=== PATIENT | male | born 1965 | race Caucasian/White ===

== ENCOUNTER → 2019-08-06 | Outpatient (CLI) | payer OTHER ==
[~2019-08-06] MED LIST: AZELAST NASAL137 MC1 SPRAY; B-122500 MCG PO; BUSPAR 5 MG TABL5 M1 PO; CLARITIN10 M2; FENOFIBRATE160 MG PO; FLONASE 0.05%50 MCG SPRAY; GINKGO BILOBA40 M1 PO; HYDROCODON-ACE1 EAC7 PO; MULTIVITAMINS PO; NAPROSYN500 MG PO; OMEPRAZOLE20 M2 PO; PERCOCET 5-3251 EACH PO; QVAR HFA 440 MCG/UN1 INH; VITAMIN D-32000 UNIT PO; XANAX 0.5 MG0.5 M1 PO
== END ==
LOC: RAD 10:33
DX: M43.17 Spondylolisthesis, lumbosacral region (principal); M54.16 Radiculopathy, lumbar region

== ENCOUNTER → 2019-08-20 | Outpatient (CLI) | payer OTHER | LOC: MRI 06:56 | DX: M51.16 Intervertebral disc disorders with radiculopathy, lumbar region (principal); M51.37 Other intervertebral disc degeneration, lumbosacral region; M51.27 Other intervertebral disc displacement, lumbosacral region; M46.07 Spinal enthesopathy, lumbosacral region; M12.88 Other specific arthropathies, not elsewhere classified, other specified site ==

== ENCOUNTER → 2019-09-06 | Outpatient (CLI) | payer OTHER | LOC: CAT 07:51 | DX: Z13.6 Encounter for screening for cardiovascular disorders (principal); E78.00 Pure hypercholesterolemia, unspecified; I25.10 Atherosclerotic heart disease of native coronary artery without angina pectoris ==

== ENCOUNTER → 2020-07-28 | Outpatient (CLI) | payer BC | LOC: SJCVCIMAG 13:02 | PROVIDERS: ATTEND Internal Medicine | DX: I65.21 Occlusion and stenosis of right carotid artery (principal); R55 Syncope and collapse; R42 Dizziness and giddiness; E78.5 Hyperlipidemia, unspecified ==